=== PATIENT | female | born 1985 | race Caucasian/White ===

== ENCOUNTER 2020-09-03 11:39 | Inpatient (IN) | payer OTHER ==
[2020-09-03] VITALS (10 sets, daily range): BP systolic 119–148; BP diastolic 58–95
[~2020-09-03] VITALS: Ht 162.6 cm; Wt 85.4 kg
[2020-09-03] MEDS ORDERED: PRENTAB9 PO (11:57)
[2020-09-03] MEDS ORDERED: LR 1,000 ML IV SCH (12:31)
[2020-09-03] MEDS ORDERED: LACTATED RINGER'S 1000 ML IV STA (12:31)
[2020-09-03] MEDS ORDERED: OXYTOCIN 30 UNITS IN 0.9% NaCl 500ML IV BAG (J2590) As Ordered ONE (12:53)
--- NOTE | 2020-09-03 13:03 | HPEPDOC ---
Obstetrical History & Physical General Date of Admission Sep 03, 2020 at 12:25 History of Present Illness S: Justina is a 34yo G P1 at 38+6wks, EDC of 11SEP2020, who [facility] for labor check. She reports that contractions started last night and have progressed to become regular and strong. She reports +FM, denies LOF/VB. She is desiring an epidural as soon as possible. uncomplicated. GBS Negative, Blood Type O positive OB Hx: 1: 2017, pelvis tested to 7lbs 11oz , complicated by GHTN and polyhydramnios Medical Hx: denies Surgical Hx: broken elbow Social Hx: denies x3 Chief Complaint: Contractions, term Information Provided By: Patient Age: 34 Care Care: Good Care Dating Final EDC: Sep 11, 2020 Final EDC for Daily Update: Sep 11, 2020 Final EDC by: LMP Antepartum Course Diagnos(e)s Uncomplicated Height (inches): 64 Pre- weight (lbs.): 158 Admission Weight (lbs.): 191 Change in Weight (lbs.): 33 Past Medical History Past Obstetrical History : Past Obstetrical History: [employer] History: No pertinent history Past Medical History Surgical History: Other (Orthopedic Sx) Family History Significant Family History: No pertinent family hx Social History Marital Status: Family situation: Spouse/partner home Psychosocial History: No pertinent psych hx * Smoker: non-smoker Alcohol: Denies Drugs: denies Allergies Coded Allergies: No Known Allergies (Unverified , 09/03/20) Medications Scheduled No.137/Iron/Folic Acd ( Vitamin Tablet) 1 Each Tablet, 1 TAB PO DAILY Physical Examination Physical Examination GENERAL: Alert and oriented times three. ABDOMEN: Gravid and non-tender to touch. FETUS: Is vertex (VTX) by sterile vaginal examination (SVE). HEART RATE: Regular rate and rhythm. LUNGS: Observed nonlabored breathing EXTREMITIES: Mild BLE edema. Vital Signs/I&O O: VSS, afebrile, normotensive FHR 130, moderate variability, + accels, no decels noted CTX: strong by palpation, regular at q2-3 minutes VE: 9/C/-2 Vital Signs Date Time Temp Pulse Resp B/P (MAP) Pulse Ox O2 Delivery O2 Flow Rate FiO2 09/03/20 11:57 87 98 Room Air 09/03/20 11:56 97.5 20 132/81 (98) Pertinent Laboratoy Data Blood Type: O+ RBC Antibody Screen: Negative HIV: Negative Hepatitis B: Negative Rapid Plasma Reagin: Nonreactive Rubella: Immune Varicella: Immune Chlamydia/Gonorrhea: Negative Group B Streptococcus: Negative Cystic Fibrosis: Negative Glucose Tolerance Test: 129 Anatomy Ultrasound Ultrasound Date: April 23, 2020 Placenta Location: Anterior Normal Anatomy: Yes Assessment/Plan Assessment A: 34yo at 38+6 weeks being admitted for active labor, category I FHT, GBS Negative, O Positive blood type. Plan P: Admit to LND, consent for imminent delivery, risk for operative vaginal delivery and/or delivery, pain management options. PIV start, admission labs drawn CEFM x2 Epidural now Expectant management Anticipate Consult with OB as indicated. CORI MACDONALD CNM Sep 03, 2020 13:03
[2020-09-03 13:44] LABS: BASO % 0.4 % (0.0-1.0); EOS % 0.2 % (0.0-3.0); HEMATOCRIT 35.7 % (36.0-47.0); HEMOGLOBIN 10.8 g/dl (12.0-15.5); LYMPH # 0.9 10^3/uL (1.5-5.0); LYMPH % 8.7 % (24.0-44.0); MEAN CORPUSCULAR HGB CONC 30.3 g/dl (32.0-36.5); MONO # 0.3 10^3/uL (0.0-0.8); MONO % 3.1 % (0.0-5.0); NEUTROPHILS # 9.3 10^3/uL (1.5-8.5); NEUTROPHILS % 86.3 % (36.0-66.0); PLATELET COUNT, AUTOMATED 153 10^3/uL (150-450); WHITE BLOOD COUNT 10.8 10^3/uL (4.0-10.0)
[2020-09-03] MEDS ORDERED: OXYTOCIN DRIP 30 UNITS in IV 1 EA IV SCH (14:06)
[2020-09-03] MEDS ORDERED: ANUSOL HC CREAM 30GM TOP PRN (14:15)
[2020-09-03] MEDS ORDERED: DIBUCAINE 1% OINTMENT 30GM TOP PRN (14:15)
[2020-09-03] MEDS ORDERED: DOCUSATE SODIUM 100 MG CAP PO PRN (14:15)
[2020-09-03] MEDS ORDERED: ACETAMINOPHEN TAB 650MG DOSE (2X325MG) PO PRN (14:15)
[2020-09-03] MEDS ORDERED: ACETAMINOPHEN 500 MG TAB PO PRN (14:15)
[2020-09-03] MEDS ORDERED: LIDOCAINE 1% MDV 20ML VIAL INFIL ONE (14:15)
--- NOTE | 2020-09-03 14:17 | DNPDOC ---
[facility] Delivery Note Delivery Note DATE OF DELIVERY: 09/03/2020 at 1326 PREDELIVERY DIAGNOSIS: 38+6 weeks' gestation and labor. POST DELIVERY DIAGNOSIS: Delivered. PROCEDURE: Spontaneous vaginal delivery. SHIPPING AND RECEIVING WEIGHER: CASSIA Macdonald ANESTHESIA: Lidocaine for repair. ESTIMATED BLOOD LOSS: 300 mL. FINDINGS: 7 pounds 5 ounce (3316g) female , Score 9/9, nuchal cord x1. DELIVERY SUMMARY: Pt presented to LND triage in active labor, 9cm/C with BBOW. Once she SROMd (with clear fluid), she rapidly progressed to C/C/+3 with urge to push. Pt effectively pushed to deliver a viable female infant over a protected perineum. head delivered SHAWNA and restituted to ROT. Loose nuchal x1 easily reduced. Left anterior shoulder delivered with ease, followed by right posterior shoulder, then remainder of body delivered to maternal abdomen where she was dried and stimulated, strong, lusty cry. Once cord stopped pulsing, clamped x2 and cut by FOB. Cord blood collected for type and miryam. Placenta delivered spontaneously and appeared intact, 3VC. Pitocin bolus started, fundus firm, EBL 300mL. Upon inspection of vagina, perineum, and cervix, a 2nd degree midline laceration noted and repaired in usual fashion with 3-0 vicryl rapide; hemostasis achieved. Family bonding well; anticipate uncomplicated PP course. CORI MACDONALD CNM Sep 03, 2020 14:17
[2020-09-03] MEDS: IBUPROFEN 800 MG TAB PO PRN (16:03)
[2020-09-03] MEDS ORDERED: SLF 3 ML SYR IV PRN (16:15)
[2020-09-03] MEDS: SLF 3 ML SYR IV SCH (19:49)
[2020-09-04] MEDS: IBUPROFEN 600MG TAB PO PRN ×2 (00:01→07:45)
[2020-09-04] MEDS: SLF 3 ML SYR IV SCH (05:35)
[2020-09-04 05:40] VITALS: BP 138/75
[2020-09-04] MEDS: PRENATAL VITAMINS CHEWABLE TABLET PO SCH (07:45)
[2020-09-04] MEDS: IBUPROFEN 800 MG TAB PO PRN (16:09)
[2020-09-04 18:00] VITALS: BP 137/77
[2020-09-05] MEDS: IBUPROFEN 600MG TAB PO PRN (02:36)
[2020-09-05 06:00] VITALS: BP 147/84
[2020-09-05] MEDS ORDERED: DOCU100C16 PO (07:16)
[2020-09-05] MEDS ORDERED: IBUP80TA PO (07:16)
[2020-09-05] MEDS ORDERED: DIBU10OI TOP (07:16)
[2020-09-05] MEDS: PRENATAL VITAMINS CHEWABLE TABLET PO SCH (09:00)
[2020-09-05] MEDS: IBUPROFEN 800 MG TAB PO PRN (13:02)
--- NOTE | 2020-09-06 15:51 | IPN ---
DATE: 09/04/2020 A 34-year-old 2, now para 2, admitted at 38-6/8 of gestation with contractions. She delivered a live- female , weighing 7 pounds 5 ounces, 3316 grams, scores of 9 and 9 at one and five minutes, respectively. Cord around the neck times one. She had local anesthetic for second-degree midline tear. On her first day her blood pressure is 138/75, respirations 18, pulse 73, temperature 97.8. Her hemoglobin on admission was 10.8, hematocrit 35.7, and platelets 153. The rest of the examination is unremarkable. She is normocephalic, atraumatic. Neck: Full range of motion. Pupils equal and reactive to light. Distal pulses are symmetric. No evidence of deep venous thrombosis (DVT), pulmonary embolus (PE), or superficial phlebitis. Chest is clear bilaterally to bases. No wheezes or rhonchi. No costovertebral angle (CVA) tenderness. Abdomen soft. Four- quadrant bowel sounds are noted. Lochia is moderate. Uterus is 2 below. Perineum is healing. No rashes, lesions or pruritus. No arthralgia, myalgia. No complaint of joint pain. No complaint of cough, wheeze, shortness of breath, or dyspnea on exertion. No nausea, vomiting, diarrhea, or constipation. Feeding is going well. Plans are for discharge tomorrow. A 6-week checkup at [facility]. Medications were dispensed at [place]. All questions were answered. A 20-minute discussion. PATIENCE
--- NOTE | 2020-09-08 09:31 | DS ---
DATE OF ADMISSION: 09/03/2020 DATE OF DISCHARGE: 09/05/2020 This is a 34-year-old 2, now para 2, admitted at 38 and 6 weeks of gestation with contractions. She had a spontaneous vaginal delivery, female under local, 7 pounds 5 ounces, 3316 grams, scores of 9 and 9 at one and five minutes, respectively. She had a second-degree midline tear repaired in the usual fashion. On discharge, hemoglobin was 10.8, hematocrit 35.7, and platelets were 153. Vital signs on discharge: Blood pressure 147/84, respirations 17, pulse 76, temperature 98.7. She has always had midrange blood pressures while she was in hospital. We discussed phlebitis, cystitis, mastitis, endometritis, and cellulitis, diet, exercise, pain management, perineal, breast, and wound care. The rest of the examination is unremarkable. She is normocephalic, atraumatic. Neck: Full range of motion. Pupils equal and reactive to light. Chest is clear bilaterally to bases. No wheezes or rhonchi. No costovertebral angle (CVA) tenderness. Abdomen soft. Uterus 2 below. Lochia is moderate. Perineum is healing and intact. She has no urgency, frequency. No nausea, vomiting, diarrhea, or constipation. She is a bit upset because baby's bilirubin is elevated, and the baby's bilirubin was not checked until today, therefore may require the baby to stay because of an elevated bilirubin and may be required to go under lights. This is the patient's third day . Our plan of care was to discharge today. Followup in 6 weeks with [facility]. Medications were dispensed at [facility]. The patient may be required to be made a border; however, her partner will not be able to stay because border status has been revoked by [employer] rules. Patient herself is doing well; however, she is somewhat upset because of the restrictions of COVID and the bilirubin of her and also that latching may be a issue. All questions were answered. Pending the next bilirubin, we will decide whether baby gets to go under lights or goes home. PATIENCE
== END 2020-09-05 13:25 | disposition home or self-care (01) | DRG 807 ==
LOC: M LDO 11:39 → M LDI 12:25 → M OBS 16:37
PROVIDERS: ADMIT Registered Nurse Maternal Newborn; ATTEND Registered Nurse Maternal Newborn
PROC: 10E0XZZ Delivery of Products of Conception, External Approach (ICD-10-PCS; principal; 2020-09-03)
PROC: 0KQM0ZZ Repair Perineum Muscle, Open Approach (ICD-10-PCS; 2020-09-03)
DX: O40.3XX0 Polyhydramnios, third trimester, not applicable or unspecified (principal); Z37.0 Single live birth; O13.4 Gestational [pregnancy-induced] hypertension without significant proteinuria, complicating childbirth; O70.1 Second degree perineal laceration during delivery; O69.81X0 Labor and delivery complicated by cord around neck, without compression, not applicable or unspecified; Z3A.39 39 weeks gestation of pregnancy